=== PATIENT | male | born 1990 | race Caucasian/White ===

== ENCOUNTER 2019-11-23 12:13 | Emergency (ER) | payer OTHER, SELFPAY ==
[2019-11-23 12:17] VITALS: BMI 22.3
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
[2019-11-23 12:23] VITALS: BP 124/75; PULSE 65; RESP 16; RESP 18; TEMP 36.8; O2SAT 99
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
--- NOTE | 2019-11-23 12:29 | XR_ITS ---
WS: [id number] Humerus LEFT TECHNIQUE: 2 views of the left humerus CLINICAL INFORMATION: injury COMPARISON: None. FINDINGS: Normal left humerus. No acute fracture dislocation. XR/[place] [id number] IMPRESSION: Normal left humerus.
[2019-11-23 12:51] VITALS: BP 112/75; PULSE 76; RESP 16; TEMP 36.6; O2SAT 98
[2019-11-23 13:21] LABS: Basophils # 0.1 10^3/uL (0.0-0.1); Basophils % 0.2 %; Eosinophils # 0.1 10^3/uL (0.0-0.8); Eosinophils % 0.3 %; Hematocrit 48.3 % (42.0-52.0); Hemoglobin 16.5 g/dL (11.7-16.6); Lymphocytes # 1.1 10^3/uL (0.8-4.8); Lymphocytes % 5.2 %; Mean Corpuscular HGB Conc 34.2 g/dL (30.0-36.0); Mean Corpuscular Hemoglobin 31.5 pg (28.0-34.0); Mean Corpuscular Volume 92.4 fL (80-94); Mean Platelet Volume 8.5 fL (7.4-10.4); Monocytes # 1.4 10^3/uL (0.2-0.9); Monocytes % 7.1 %; Neutrophils # 17.4 10^3/uL (1.8-7.7); Neutrophils % 86.8 %; Nucleated Red Blood Cells % 0 %; Platelet Count 210 10^3/cmm (130-400); Red Blood Count 5.23 10^6/uL (4.1-5.3); Red Cell Distribution Width 11.8 % (12.1-15.1); White Blood Count 20.1 10^3/uL (4.0-10.0)
[2019-11-23] MEDS: iohexol 300 mg/mL 100 mL Btl IV (13:25)
[2019-11-23 14:03] VITALS: BP 110/73; PULSE 96; RESP 16; O2SAT 96
[2019-11-23] MEDS: neomycin-poly-bacitracin oint 0.9 gm Pkt 1 APPLIC TOPICAL (14:19)
[2019-11-23 14:29] VITALS: BP 110/72; PULSE 92; RESP 16; TEMP 36.6; O2SAT 96
== END 2019-11-23 14:33 | disposition home or self-care (01) ==
LOC: ER 14:56
PROVIDERS: Emergency Provider Nurse Practitioner Family
DX: S30.1XXA Contusion of abdominal wall, initial encounter (principal); S40.022A Contusion of left upper arm, initial encounter; W23.0XXA Caught, crushed, jammed, or pinched between moving objects, initial encounter; Y99.0 Civilian activity done for income or pay; F17.210 Nicotine dependence, cigarettes, uncomplicated; Z79.82 Long term (current) use of aspirin
CPT/HCPCS: 12345; 36415; 73060; 74177; 85025; 99283; Q9967

== ENCOUNTER 2022-09-22 07:59 | Outpatient (RCR) | payer OTHER, SELFPAY | END 2022-10-02 23:59 | disposition home or self-care (01) | LOC: SPT 07:59 | PROVIDERS: PCP Family Medicine; Visit Provider Family Medicine | DX: M25.569 Pain in unspecified knee (principal) | CPT/HCPCS: 97161 ==

== ENCOUNTER 2022-10-03 01:00 | Outpatient (RCR) | payer OTHER, SELFPAY | END 2022-10-27 23:59 | disposition home or self-care (01) | LOC: SPT 01:00 | PROVIDERS: PCP Family Medicine; Visit Provider Family Medicine | DX: M25.562 Pain in left knee (principal); M25.561 Pain in right knee | CPT/HCPCS: 97110 ==

== ENCOUNTER → 2025-05-08 10:01 | Outpatient (BNVA) | payer OTHER, SELFPAY | PROVIDERS: PCP Family Medicine; Visit Provider Podiatrist Foot & Ankle Surgery | DX: B07.9 Viral wart, unspecified (principal) | CPT/HCPCS: 99203 ==

== ENCOUNTER → 2025-05-25 10:55 | Outpatient (BNVA) | payer OTHER, SELFPAY | PROVIDERS: PCP Family Medicine; Visit Provider Dermatology | DX: B35.3 Tinea pedis (principal); B81.4 Mixed intestinal helminthiases; B07.8 Other viral warts; R20.8 Other disturbances of skin sensation; L08.89 Other specified local infections of the skin and subcutaneous tissue; L53.8 Other specified erythematous conditions; R23.8 Other skin changes | CPT/HCPCS: 17110; 99203 ==

== ENCOUNTER → 2025-06-13 07:02 | Outpatient (BNVA) | payer OTHER, SELFPAY | PROVIDERS: PCP Family Medicine; Visit Provider Podiatrist Foot & Ankle Surgery | DX: B07.9 Viral wart, unspecified (principal) | CPT/HCPCS: 99213 ==